=== PATIENT | male | born 2005 | race African-American/Black ===

== ENCOUNTER 2025-03-30 16:33 | Emergency (ER) | payer OTHER, SELFPAY ==
[~2025-03-30 16:33] MED LIST: Iopamidol 300 61% 100 ML VIAL FS ONE
[2025-03-30] MEDS ORDERED: Ketorolac Tromethamine 30 MG (1 mL) VIAL ONE (17:14)
[2025-03-30] MEDS ORDERED: Famotidine/PF 20 mg/2ml Vial ONE (17:14)
[2025-03-30 17:40] LABS: Hematocrit 49.7 % (38.8-50.0); Hemoglobin 16.0 g/dL (13.5-17.5); Mean Corpuscular Hemoglobin 25.8 pg (27.0-33.0); Mean Corpuscular Volume 80.2 fL (81.2-95.1); Platelet Count 237 10x3/uL (150-450); Red Blood Cell (RBC) Count 6.20 10x6/uL (4.32-5.72); White Blood Cell (WBC) Count 7.93 10x3/uL (3.5-10.5)
[2025-03-30 18:08] LABS: MDiff Complete? YES; Platelet Adequacy Comment Appears Adequate; RBC Morphology Within Normal Limits
[2025-03-30 18:09] LABS: ALT (SGPT) 20 U/L (Less than 45); AST (SGOT) 24 U/L (11-34); Albumin 4.6 g/dL (3.1-4.5); Alkaline Phosphatase 62 U/L (50-130); Anion Gap 16 mmol/L (10-20); BUN (Urea Nitrogen) 12 mg/dL (8.4-21.0); Bilirubin, Total 0.9 mg/dL (0.3-1.2); Calc. Creatinine Clearance 0 mL/min (70-130); Calcium 10.3 mg/dL (7.8-10.44); Carbon Dioxide 26 mmol/L (22-29); Chloride 101 mmol/L (98-107); Globulin 3.9 g/dL (2.4-3.5); Glucose 88 mg/dL (70-105); Lipase 12 U/L (8-78); Potassium 3.8 mmol/L (3.5-5.1); Sodium 139 mmol/L (136-145)
== END 2025-03-30 18:36 | disposition home or self-care (01) ==
LOC: CSHERS 16:33
DX: R10.84 Generalized abdominal pain (principal); R11.2 Nausea with vomiting, unspecified
CPT/HCPCS: 74177; 80053; 83690; 85025; 93005; 96374; 96375; J1630; J1885; Q9967